=== PATIENT | male | born 1970 | race Caucasian/White ===

== ENCOUNTER 2016-07-09 16:19 | Emergency (ER) | payer SELFPAY ==
[~2016-07-09] VITALS: Ht 182.9 cm; Wt 104.5 kg
[2016-07-09 16:22] VITALS: BP 171/102; PULSE 94; RESP 12; TEMP 98.3; O2SAT 98
--- NOTE | 2016-07-09 16:45 | PD ---
HPI Chief Complaint: Medication Refill Request Time Seen by Provider: 16:45 Travel History International Travel<30 days: No Contact w/Intl Traveler<30days: No Traveled to known affect area: No History of Present Illness HPI 46-year-old male with PMH of HTN, depression, alcohol abuse in remission presents to the ED for medication refills. The patient states that he has run out of lisinopril, trazodone Wellbutrin and hydroxyzine. States he's been out of these medications for approximately 3 days. He states that he attempted to have them refilled at [facility] this morning. However, there were no beds available. Patient states he's been sleepless and anxious since running out of his medications. He denies suicidal or homicidal ideation. Patient stated otherwise been feeling well. He denies headache, fever, chills, cold or flu symptoms, chest pain, abdominal pain, nausea, vomiting, weakness of the extremities. NKDA. PFSH Social History Alcohol Use: No Tobacco Use: No Substance Use: No Allergies-Medications (Allergen,Severity, Reaction): Coded Allergies: No Known Allergies (Unverified , 07/09/16) Reported Meds & Prescriptions Reported Meds & Active Scripts Active Wellbutrin Xl 24 HR (Bupropion HCl) 150 Mg Tab 150 Mg PO DAILY Vistaril (Hydroxyzine Pamoate) 25 Mg Cap 25 Mg PO TID PRN Lisinopril 20 Mg Tab 20 Mg PO BID PRN Trazodone (Trazodone HCl) 50 Mg Tab 50 Mg PO HS Reported Lisinopril 20 Mg Tab 20 Mg PO BID Vistaril (Hydroxyzine Pamoate) 25 Mg Cap 25 Mg PO TID PRN Wellbutrin Xl 24 HR (Bupropion HCl) 150 Mg Tab 150 Mg PO DAILY Trazodone (Trazodone HCl) 50 Mg Tab 50 Mg PO HS Review of Systems Except as stated in HPI: all other systems reviewed are Neg Physical Exam Narrative GENERAL: Well-nourished, well-developed white male in no acute distress. PSYCHIATRIC: Anxious. No delusional thought processes. No hallucinations. SKIN: Warm and dry. HEAD: Normocephalic. EYES: No scleral icterus. No injection or drainage. NECK: Supple, trachea midline. No JVD or lymphadenopathy. CARDIOVASCULAR: Regular rate and rhythm without murmurs, gallops, or rubs. 2+ DP and radial pulses bilaterally. RESPIRATORY: Breath sounds clear and equal bilaterally. No accessory muscle use. GASTROINTESTINAL: Abdomen soft, non-tender, nondistended. Active bowel sounds. MUSCULOSKELETAL: No cyanosis, or edema. The patient is a mandatory moves extremities spontaneously. NEUROLOGICAL: Awake and alert. Cranial nerves II through XII intact. Motor and sensory grossly within normal limits. Five out of 5 muscle strength in all muscle groups. Normal speech. BACK: Nontender without obvious deformity. No CVA tenderness. Data Data Last Documented VS Vital Signs Date Time Temp Pulse Resp B/P Pulse Ox O2 Delivery O2 Flow Rate FiO2 07/09/16 16:22 98.3 94 12 171/102 98 Room Air MDM Medical Decision Making Medical Screen Exam Complete: Yes Emergency Medical Condition: Yes Differential Diagnosis Anxiety versus depression versus hypertension versus medication refill versus insomnia versus other Narrative Course 46-year-old male with PMH of HTN, depression, alcohol abuse in remission presents to the ED for medication refills. The patient states that he has run out of lisinopril, trazodone Wellbutrin and hydroxyzine. States he's been out of these medications for approximately 3 days. He states that he attempted to have them refilled at [facility] this morning. Patient states he's been sleepless and anxious since running out of his medications. He denies suicidal or homicidal ideation. He denies headache, fever, chills, cold or flu symptoms , chest pain, abdominal pain, nausea, vomiting, weakness of the extremities. Vitals reviewed. Patient is hypertensive on presentation. Physical exam is reassuring. The patient presents his empty medication bottles today. I discussed the importance of establishing primary care. He was provided information packet for the patient assistance program. I informed the patient that the providers discretion to refill medications, and that he may not be able to have his medications refilled here in the future. Instructed to take the medication as per prescribed, follow up as discussed. He indicated understanding of the instructions and is amenable to the plan of care. He is stable and discharged home. Diagnosis Primary Impression: Medication refill Referrals: Primary Care Physician Patient Instructions: Chronic Hypertension (ED), Depression (ED), General Instructions Additional Instructions: Rest, hydrate. Avoid known stressors. Take all medication as prescribed. Follow-up with the patient assistance program as discussed. Follow-up with primary care as discussed. Return to the ED for any urgent or emergent medical condition. Med/Other Pt SpecificInfo: Prescription(s) given Scripts Bupropion HCl ER 24 HR (Wellbutrin Xl 24 HR)150 Mg [id number] Mg PO DAILY #30 TAB Ref 0 Prov:Mary Rosenbaum DO 07/09/16 Hydroxyzine Pamoate (Vistaril)25 Mg Cap25 Mg PO TID PRN (ANXIETY) #30 CAP Ref 0 Prov:Mary Rosenbaum DO 07/09/16 Lisinopril 20 Mg Tab20 Mg PO BID PRN #60 TAB Ref 0 Prov:Mary Rosenbaum DO 07/09/16 Trazodone 50 Mg Tab50 Mg PO HS #30 TAB Ref 0 Prov:Mary Rosenbaum DO 07/09/16 Disposition: 01 DISCHARGE HOME Condition: Stable Kellie Cortés Jul 09, 2016 16:45
[2016-07-09] MEDS ORDERED: LISI-515 PO ×2 (16:58→17:36)
[2016-07-09] MEDS ORDERED: VIST25CA PO ×2 (16:58→17:36)
[2016-07-09] MEDS ORDERED: BUPR150XL PO ×2 (16:58→17:36)
[2016-07-09] MEDS ORDERED: TRAZ50TA12 PO ×2 (16:58→17:36)
== END 2016-07-09 17:58 | disposition home or self-care (01) ==
LOC: NEPB 16:19
DX: I10 Essential (primary) hypertension (principal); Z79.899 Other long term (current) drug therapy
CPT/HCPCS: 99281

== ENCOUNTER 2016-08-08 08:42 | Emergency (ER) | payer SELFPAY ==
[~2016-08-08] VITALS: Ht 185.4 cm; Wt 100.0 kg
[~2016-08-08 08:42] MED LIST: BUPR150XL PO; LISI-515 PO; TRAZ50TA12 PO; VIST25CA PO
[2016-08-08 08:44] VITALS: BP 185/114; PULSE 84; RESP 17; TEMP 97.9; O2SAT 99
[2016-08-08] MEDS ORDERED: LISI-515 PO (09:10)
[2016-08-08] MEDS ORDERED: BUPR150XL PO (09:10)
[2016-08-08] MEDS ORDERED: TRAZ50TA12 PO (09:10)
[2016-08-08] MEDS ORDERED: VIST25CA PO (09:10)
--- NOTE | 2016-08-08 09:20 | PD ---
HPI Chief Complaint: Medication Refill Request Time Seen by Provider: 09:11 Travel History International Travel<30 days: No Contact w/Intl Traveler<30days: No Traveled to known affect area: No History of Present Illness HPI 46-year-old male presents the emergency Department with request for refills of his trazodone, lisinopril, ropinirole, and hydroxyzine. Patient is currently in the process of patient assistance and has an appointment with [facility] on 25 August. He is currently without insurance but requesting refills of these meds. Patient is a recovering alcoholic with history of depression, currently in ongoing rehabilitation. He is requesting refills so that he does not withdraw. He currently has no other medical complaints at this time. Patient denies suicidal or homicidal ideation at this time. He has no known drug allergies. [facility] Social History Alcohol Use: No Tobacco Use: No Substance Use: No Allergies-Medications (Allergen,Severity, Reaction): Coded Allergies: No Known Allergies (Unverified , 07/09/16) Reported Meds & Prescriptions Reported Meds & Active Scripts Active Wellbutrin Xl 24 HR (Bupropion HCl) 150 Mg Tab 150 Mg PO DAILY Vistaril (Hydroxyzine Pamoate) 25 Mg Cap 25 Mg PO TID PRN Lisinopril 20 Mg Tab 20 Mg PO BID Trazodone (Trazodone HCl) 50 Mg Tab 50 Mg PO HS Lisinopril 20 Mg Tab 20 Mg PO BID PRN Trazodone (Trazodone HCl) 50 Mg Tab 50 Mg PO HS Reported Vistaril (Hydroxyzine Pamoate) 25 Mg Cap 25 Mg PO TID PRN Wellbutrin Xl 24 HR (Bupropion HCl) 150 Mg Tab 150 Mg PO DAILY Review of Systems Except as stated in HPI: all other systems reviewed are Neg General / Constitutional: No: Fever Eyes: No: Visual changes HENT: No: Headaches Cardiovascular: No: Chest Pain or Discomfort Respiratory: No: Shortness of Breath Gastrointestinal: No: Abdominal Pain Genitourinary: No: Dysuria Musculoskeletal: No: Pain Skin: No Rash Neurologic: No: Weakness Psychiatric: No: Depression Endocrine: No: Polydipsia Hematologic/Lymphatic: No: Easy Bruising Physical Exam Narrative GENERAL: Patient appears in no acute distress. SKIN: Warm and dry. Normal color. Normal turgor. HEAD: Atraumatic. Normocephalic. EYES: Pupils equal and round. No scleral icterus. No injection or drainage. ENT: No nasal bleeding or discharge. Mucous membranes pink and moist. Pharynx is clear. NECK: Trachea midline. Supple and nontender. CARDIOVASCULAR: Regular rate and rhythm. RESPIRATORY: No accessory muscle use. Clear to auscultation. Breath sounds equal bilaterally. MUSCULOSKELETAL: Extremities without clubbing, cyanosis, or edema. No obvious deformities. NEUROLOGICAL: Awake and alert. No obvious cranial nerve deficits. Motor grossly within normal limits. Five out of 5 muscle strength in the arms and legs. Normal speech. PSYCHIATRIC: Appropriate mood and affect; insight and judgment normal. Data Data Last Documented VS Vital Signs Date Time Temp Pulse Resp B/P Pulse Ox O2 Delivery O2 Flow Rate FiO2 08/08/16 08:44 97.9 84 17 185/114 99 MDM Medical Decision Making Medical Screen Exam Complete: Yes Emergency Medical Condition: Yes Differential Diagnosis History of depression. Polysubstance abuse. Need for refills. Narrative Course Patient is medically stable at time of exam. Refills given of trazodone 50 mg once evening #30. No refill Lisinopril 20 mg daily #30. No refill Wellbutrin 150 mg #30 no refill. Hydroxyzine 25 mg #30 no refill. Patient follow with [facility] clinic as scheduled. Patient may return the emergency Department with any worsening symptoms as needed. Diagnosis Primary Impression: Medication refill Patient Instructions: General Instructions Med/Other Pt SpecificInfo: Prescription(s) given Scripts Bupropion HCl ER 24 HR (Wellbutrin Xl 24 HR)150 Mg [id number] Mg PO DAILY #30 TAB Ref 0 Prov:Mary Rosenbaum DO 08/08/16 Hydroxyzine Pamoate (Vistaril)25 Mg Cap25 Mg PO TID PRN (ANXIETY) #30 CAP Ref 0 Prov:Mary Rosenbaum DO 08/08/16 Lisinopril 20 Mg Tab20 Mg PO BID #30 TAB Ref 0 Prov:Mary Rosenbaum DO 08/08/16 Trazodone 50 Mg Tab50 Mg PO HS #30 TAB Ref 0 Prov:Mary Rosenbaum DO 08/08/16 Disposition: 01 DISCHARGE HOME Condition: Stable Reji Harris Aug 08, 2016 09:20
== END 2016-08-08 09:29 | disposition home or self-care (01) ==
LOC: NEPB 08:42
DX: F10.20 Alcohol dependence, uncomplicated (principal); Z76.0 Encounter for issue of repeat prescription
CPT/HCPCS: 99281

== ENCOUNTER 2016-10-28 15:30 | Emergency (ER) | payer OTHER ==
[~2016-10-28] VITALS: Ht 185.4 cm; Wt 103.0 kg
[2016-10-28 15:34] VITALS: BP 179/96; PULSE 93; RESP 18; TEMP 98.3; O2SAT 97
--- NOTE | 2016-10-28 15:37 | PD ---
Physical Exam Time Seen by Provider: 15:35 Narrative 46 y/o with fatigue, dizziness for one week. He feels like he is "melting." Vital signs reviewed. Seen at triage desk. awaiting bed placement. Data Data Last Documented VS Vital Signs Date Time Temp Pulse Resp B/P Pulse Ox O2 Delivery O2 Flow Rate FiO2 10/28/16 15:34 98.3 93 18 179/96 97 MDM Medical Record Reviewed: Yes Supervised Visit with BUSHRA: Aaron Foreman October 28, 2016 15:37
[2016-10-28] MEDS ORDERED: SODIUM CHLORIDE 0.9% FLUSH 10 ML FLUSH IVF PRN (16:00)
--- NOTE | 2016-10-28 16:01 | PD ---
HPI Chief Complaint: Dizziness Time Seen by Provider: 15:45 Travel History International Travel<30 days: No Contact w/Intl Traveler<30days: No Traveled to known affect area: No History of Present Illness HPI Patient is a 46-year-old male who presents emergency department with complaint of dizziness. Patient states that he has had years of tinnitus that this has never given him any troubles. Over the course of the last week he has been having severe episodes of dizziness. Describes this as vertigo as though the world is spinning around him. He gets nauseous, but has not had any episodes of vomiting. He denies any other neurologic symptoms, word finding difficulty , speech slurring, etc. When he is having episodes of vertigo he does have some difficulty with gait. He has not noticed any change with head movement. His tinnitus has not been any worse than it is chronically, and he denies any ear pressure, drainage, etc. Patient feels generally weak, and fatigued in addition to the above symptoms. No chest pain, shortness of breath, palpitations. Patient is adopted, and does not know familial history. PFSH Past Medical History Depression: Yes Medical other: Yes (hx of mental disorder:depression) Tetanus Vaccination: > 5 Years Influenza Vaccination: No Past Surgical History Other Surgery: Yes (sinus sx) Social History Alcohol Use: Yes (hx of alcoholism quit 1 yr ago, pt in [facility]) Tobacco Use: Yes (ppd) Substance Use: No Allergies-Medications (Allergen,Severity, Reaction): Coded Allergies: No Known Allergies (Unverified , 10/28/16) Reported Meds & Prescriptions Reported Meds & Active Scripts Active Wellbutrin Xl 24 HR (Bupropion HCl) 150 Mg Tab 150 Mg PO DAILY Vistaril (Hydroxyzine Pamoate) 25 Mg Cap 25 Mg PO TID PRN Lisinopril 20 Mg Tab 20 Mg PO BID Trazodone (Trazodone HCl) 50 Mg Tab 50 Mg PO HS Lisinopril 20 Mg Tab 20 Mg PO BID PRN Trazodone (Trazodone HCl) 50 Mg Tab 50 Mg PO HS Reported Vistaril (Hydroxyzine Pamoate) 25 Mg Cap 25 Mg PO TID PRN Wellbutrin Xl 24 HR (Bupropion HCl) 150 Mg Tab 150 Mg PO DAILY Review of Systems Except as stated in HPI: all other systems reviewed are Neg Physical Exam Narrative GENERAL: Well-appearing middle-aged male in no acute distress SKIN: Focused skin assessment warm/dry. HEAD: Normocephalic. EYES: Pupils equal and round, minimal end gaze nystagmus horizontally. No scleral icterus. No injection or drainage. ENT: No nasal bleeding or discharge. Mucous membranes pink and moist. TMs clear bilaterally. NECK: Supple CARDIOVASCULAR: Regular rate and rhythm. No murmur appreciated. RESPIRATORY: No accessory muscle use. Clear to auscultation. Breath sounds equal bilaterally. GASTROINTESTINAL: Abdomen soft, non-tender, nondistended. Obese MUSCULOSKELETAL: No obvious deformities. No clubbing. No cyanosis. No edema. NEUROLOGICAL: Awake and alert. No obvious cranial nerve deficits other than minimal end gaze nystagmus horizontally. Motor grossly within normal limits. Normal speech. Normal gait. PSYCHIATRIC: Appropriate mood and affect; insight and judgment normal. Data Data Last Documented VS Vital Signs Date Time Temp Pulse Resp B/P Pulse Ox O2 Delivery O2 Flow Rate FiO2 10/28/16 15:44 97 Room Air 10/28/16 15:34 98.3 93 18 179/96 Orders Complete Blood Count With Diff (10/28/16 15:55) Basic Metabolic Panel (Bmp) (10/28/16 15:55) Iv Access Insert/Monitor (10/28/16 15:55) Oximetry (10/28/16 15:55) Sodium Chloride 0.9% Flush (Ns Flush) (10/28/16 16:00) Mri Brain W/O Contrast (10/28/16 ) Mra Brain W/O Contrast (Cow) (10/28/16 ) [facility] Medical Decision Making Medical Screen Exam Complete: Yes Emergency Medical Condition: Yes Medical Record Reviewed: Yes Differential Diagnosis 46-year-old male with history of chronic tinnitus here with episodic vertigo 1 week. Differential includes BPPV, Mnire's, labyrinthitis, posterior circulation CVA/TIA, mass lesion. Narrative Course Patient placed on monitor, IV established and blood obtained. CBC, BMP, MRI/ MRI of the brain were ordered. Results remain pending at the time this dictation. Patient signed out to oncoming provider waiting results of same for hopeful disposition to home if negative. Diagnosis Primary Impression: Vicky Yanes MD October 28, 2016 16:01
[2016-10-28 16:44] VITALS: PULSE 70; RESP 18; O2SAT 97
[2016-10-28 17:07] LABS: AUTOMATED NEUTROPHIL # 3.7 TH/MM3 (1.8-7.7); BASOPHIL % 0.2 % (0.0-2.0); EOSINOPHIL # 0.3 TH/MM3 (0-0.4); EOSINOPHIL % 3.5 % (0.0-4.0); HEMATOCRIT 41.7 % (39.0-51.0); HEMO FLAGS DIFF FINAL; LYMPH % 21.8 % (9.0-44.0); LYMPHOCYTE # 1.7 TH/MM3 (1.0-4.8); MEAN CELL VOLUME 92.6 FL (80.0-100.0); MEAN CORPUSCULAR HEMOGLOBIN 31.3 PG (27.0-34.0); MEAN CORPUSCULAR HGB CONC 33.8 % (32.0-36.0); NEUT % 48.5 % (16.0-70.0); PLATELET COUNT 239 TH/MM3 (150-450); RED CELL DISTRIBUTION WIDTH 12.7 % (11.6-17.2); WHITE BLOOD COUNT 7.7 TH/MM3 (4.0-11.0)
--- NOTE | 2016-10-28 17:17 | PD ---
Data Data Last Documented VS Vital Signs Date Time Temp Pulse Resp B/P Pulse Ox O2 Delivery O2 Flow Rate FiO2 10/28/16 19:40 54 16 133/86 97 10/28/16 16:44 Room Air 10/28/16 15:34 98.3 Orders Complete Blood Count With Diff (10/28/16 15:55) Basic Metabolic Panel (Bmp) (10/28/16 15:55) Iv Access Insert/Monitor (10/28/16 15:55) Oximetry (10/28/16 15:55) Sodium Chloride 0.9% Flush (Ns Flush) (10/28/16 16:00) Mri Brain W/O Contrast (10/28/16 ) Mra Brain W/O Contrast (Cow) (10/28/16 ) Cbc No Diff, Includes Plts (10/28/16 18:58) Basic Metabolic Panel (Bmp) (10/28/16 18:58) Labs Laboratory Tests Test 10/28/16 10/28/16 16:30 18:39 White Blood Count 7.7 TH/MM3 8.5 TH/MM3 Red Blood Count 4.50 MIL/MM3 4.68 MIL/MM3 Hemoglobin 14.1 GM/DL 14.3 GM/DL Hematocrit 41.7 % 40.5 % Mean Corpuscular Volume 92.6 FL 86.4 FL Mean Corpuscular Hemoglobin 31.3 PG 30.5 PG Mean Corpuscular Hemoglobin 33.8 % 35.3 % Concent Red Cell Distribution Width 12.7 % 13.3 % Platelet Count 239 TH/MM3 280 TH/MM3 Mean Platelet Volume 9.7 FL 7.2 FL Neutrophils (%) (Auto) 48.5 % Lymphocytes (%) (Auto) 21.8 % Monocytes (%) (Auto) 26.0 % Eosinophils (%) (Auto) 3.5 % Basophils (%) (Auto) 0.2 % Neutrophils # (Auto) 3.7 TH/MM3 Lymphocytes # (Auto) 1.7 TH/MM3 Monocytes # (Auto) 2.0 TH/MM3 Eosinophils # (Auto) 0.3 TH/MM3 Basophils # (Auto) 0.0 TH/MM3 CBC Comment DIFF FINAL Differential Comment Hematology Comments Sodium Level 136 MEQ/L 140 MEQ/L Potassium Level 4.0 MEQ/L 3.9 MEQ/L Chloride Level 101 MEQ/L 105 MEQ/L Carbon Dioxide Level 26.3 MEQ/L 26.3 MEQ/L Anion Gap 9 MEQ/L 9 MEQ/L Blood Urea Nitrogen 19 MG/DL 12 MG/DL Creatinine 1.01 MG/DL 0.90 MG/DL Estimat Glomerular Filtration 80 ML/MIN 91 ML/MIN Rate Random Glucose 101 MG/DL 94 MG/DL Calcium Level 9.1 MG/DL 8.4 MG/DL [facility] Supervised Visit with BUSHRA: No Narrative Course Patient care assumed from Dr. Amber Redd at 1700. This is a 46-year-old male who does not know his family history as she was adopted presents with vague dizziness symptoms. He is asymptomatic currently but has been having some vertigo on and off for the past few days. MRI has been ordered and disposition is pending the MRI. Last 24 hours Impressions Head Magnetic Resonance Angiography 10/28/16 0000 Signed Impressions: Service Date/Time: Friday, October 28, 2016 17:45 - CONCLUSION: Normal examination. Wild Cortez MD Brain MRI 10/28/16 0000 Signed Impressions: Service Date/Time: Friday, October 28, 2016 17:45 - CONCLUSION: No acute intracranial disease. There is sinus disease. Wild Cortez MD Patient on my examination is asymptomatic. His neurological exam shows cranial nerve II-12 are grossly intact and nonfocal, 5 out of 5 strength in all 4 extremities, sensation is normal, TMs are clear bilaterally. Cerebellar testing negative, he is able to an delay with even narrow based gait. My impression is probable BPPV. Discussed with him symptomatic management he was given discharge instructions for Mark maneuvers and meclizine. Discussed need for follow-up the primary care physician and return to ED criteria. Diagnosis Primary Impression: Vertigo Referrals: Indio Troy MD [facility] Med/Other Pt SpecificInfo: Prescription(s) given Scripts Lisinopril 20 Mg Tab20 Mg PO BID PRN #60 TAB Ref 0 Prov:Duane Olson MD 10/28/16 Meclizine 25 Mg Chew25 Mg CHEW DIRECTED PRN (VERTIGO) #30 TAB Ref 0 Prov:Duane Olson MD 10/28/16 Disposition: 01 DISCHARGE HOME Condition: Stable Duane Olson MD October 28, 2016 17:17
--- NOTE | 2016-10-28 18:15 | RADRPT ---
EXAM DATE/TIME: 10/28/2016 17:45 [facility] COMPARISON: MRI BRAIN W/O CONTRAST, October 28, 2016, 17:45. INDICATIONS : TIA. MEDICAL HISTORY : Hypertension. SURGICAL HISTORY : Sinus. Dental. ENCOUNTER: Subsequent ACUITY: 1 week PAIN SCORE: 3/10 LOCATION: cranial Please note a normal MRA of the brain does not entirely exclude the possibility of a small aneurysm, nor the possibility of distal intracranial vessel disease. TECHNIQUE: 3D time of flight MRA was performed. Source images, multiplanar STS MIP, and 3D volume MIP reconstru ctions were reviewed. FINDINGS: There is excellent visualization of the major intracranial arteries out to the second-order branch ve ssels. There is no evidence for aneurysm, vessel truncation or stenosis, and no evidence for vascula r malformation. CONCLUSION: Normal examination. Wild Cortez MD on October 28, 2016 at 18:11 Board Certified Radiologist. This report was verified electronically.
--- NOTE | 2016-10-28 18:16 | RADRPT ---
EXAM DATE/TIME: 10/28/2016 17:45 [facility] COMPARISON: No previous studies available for comparison. INDICATIONS : TIA. MEDICAL HISTORY : Hypertension. SURGICAL HISTORY : Sinus. Dental. ENCOUNTER: Subsequent ACUITY: 1 week PAIN SCORE: 3/10 LOCATION: cranial TECHNIQUE: Multiplanar, multisequence MRI of the brain was performed without contrast. FINDINGS: CEREBRUM: The ventricles are normal for age. No evidence of midline shift, mass lesion, hemorrhage or acute in farction. No extraaxial fluid collections are seen. The pituitary gland and suprasellar cistern are normal in configuration. WHITE MATTER: No significant signal abnormalities are seen in the white matter. POSTERIOR FOSSA: The cerebellum and brainstem are intact. The 4th ventricle is midline. The cerebellopontine angle is unremarkable. The cerebellar tonsils are normal in position. DIFFUSION IMAGING: No focal areas of restricted diffusion are seen. No evidence of acute infarction. EXTRACRANIAL: The visualized portions of the orbits are unremarkable. There is bilateral ethmoid and maxillary sinu s disease. CONCLUSION: No acute intracranial disease. There is sinus disease. Wild Cortez MD on October 28, 2016 at 18:13 Board Certified Radiologist. This report was verified electronically.
[2016-10-28] MEDS ORDERED: MECL25CH CHEW (18:19)
[2016-10-28 18:46] LABS: BICARBONATE 26.3 MEQ/L (21.0-32.0)
[2016-10-28 19:19] LABS: HEMATOCRIT 40.5 % (39.0-51.0); MEAN CELL VOLUME 86.4 FL (80.0-100.0); MEAN CORPUSCULAR HEMOGLOBIN 30.5 PG (27.0-34.0); MEAN CORPUSCULAR HGB CONC 35.3 % (32.0-36.0); PLATELET COUNT 280 TH/MM3 (150-450); RED BLOOD COUNT 4.68 MIL/MM3 (4.50-5.90); RED CELL DISTRIBUTION WIDTH 13.3 % (11.6-17.2); REVIEW FLAG FINAL; WHITE BLOOD COUNT 8.5 TH/MM3 (4.0-11.0)
[2016-10-28] MEDS ORDERED: LISI-515 PO (19:20)
[2016-10-28 19:37] LABS: BICARBONATE 26.3 MEQ/L (21.0-32.0); POTASSIUM 3.9 MEQ/L (3.5-5.1)
[2016-10-28 19:40] VITALS: BP 133/86
== END 2016-10-28 19:44 | disposition home or self-care (01) ==
LOC: NEPD 15:30
DX: R42 Dizziness and giddiness (principal); R53.83 Other fatigue; H93.19 Tinnitus, unspecified ear; F17.210 Nicotine dependence, cigarettes, uncomplicated
CPT/HCPCS: 70544; 70551; 80048; 85025; 85027

== ENCOUNTER 2017-11-09 10:37 | Emergency (ER) | payer SELFPAY ==
[~2017-11-09] VITALS: Ht 182.9 cm; Wt 111.0 kg
[~2017-11-09 10:37] MED LIST changes: +MECL25CH CHEW; -VIST25CA PO
[2017-11-09 10:42] VITALS: BP 167/114; PULSE 89; RESP 16; TEMP 98; O2SAT 97
--- NOTE | 2017-11-09 11:24 | PD ---
HPI Chief Complaint: Fall Time Seen by Provider: 11:01 Travel History International Travel<30 days: No Contact w/Intl Traveler<30days: No Traveled to known affect area: No History of Present Illness HPI 47-year-old male presents for evaluation after a fall. He reports that 2 days ago he was walking home from a bar. He had been drinking. He believes that he tripped on the curb and fell. He believes that there was loss of consciousness after the fall. He was able to ambulate home after the fall. He is complaining of left ankle/lower leg pain as well as right-sided jaw pain. Pain is throbbing and worse with movement or ambulation. He reports that yesterday he rested for most of the day, symptoms persisted today which prompted evaluation. He denies any numbness or tingling or weakness in the arms or legs. He denies any global headache, blurred vision, nausea or vomiting, neck or back pain, chest pain, abdomen pain. He is not on any blood thinning medications. He has no other complaints at this time. [facility] Past Medical History Depression: Yes Past Surgical History Other Surgery: Yes (sinus sx) Social History Alcohol Use: Yes (hx of alcoholism quit 1 yr ago, pt in [place]) Tobacco Use: Yes (ppd) Substance Use: No Allergies-Medications (Allergen,Severity, Reaction): Coded Allergies: No Known Allergies (Unverified Adverse Reaction, Unknown, 11/09/17) Reported Meds & Prescriptions Reported Meds & Active Scripts Active Hydrocodone-Acetaminophen 5-325 mg Tab 1 Tab PO Q6H PRN Lisinopril 20 Mg Tab 20 Mg PO BID PRN Meclizine (Meclizine HCl) 25 Mg Chew 25 Mg CHEW DIRECTED PRN Wellbutrin Xl 24 HR (Bupropion HCl) 150 Mg Tab 150 Mg PO DAILY Trazodone (Trazodone HCl) 50 Mg Tab 50 Mg PO HS Review of Systems Except as stated in HPI: all other systems reviewed are Neg Physical Exam Narrative GENERAL: Well-developed well-nourished male in no acute distress SKIN: Warm and dry. There is ecchymosis noted to the right mandible. There is ecchymosis noted to the medial left ankle. HEAD: Atraumatic. Normocephalic. EYES: Pupils equal and round. No scleral icterus. No injection or drainage. ENT: No nasal bleeding or discharge. Mucous membranes pink and moist. There is some tenderness to palpation of the right mandible. There is no trismus. Normal dentition. NECK: Trachea midline. No JVD. CARDIOVASCULAR: Regular rate and rhythm. No murmur appreciated. RESPIRATORY: No accessory muscle use. Clear to auscultation. Breath sounds equal bilaterally. GASTROINTESTINAL: Abdomen soft, non-tender, nondistended. Hepatic and splenic margins not palpable. MUSCULOSKELETAL: Skin as noted above. There is tenderness to palpation to the medial left ankle with associated edema and ecchymosis. There is tenderness to palpation to the lateral proximal left fibula and knee. There is limited dorsi and plantar flexion of the left ankle secondary to pain and swelling. The patient maintains full flexion and extension of the left knee. The Achilles tendon is intact and nontender. 2+ dorsalis pedis pulses. There is no tenderness to palpation along the cervical thoracic or lumbar midline spine. NEUROLOGICAL: Awake and alert. No obvious cranial nerve deficits. Motor grossly within normal limits. Normal speech. Data Data Last Documented VS Vital Signs Date Time Temp Pulse Resp B/P (MAP) Pulse Ox O2 Delivery O2 Flow Rate FiO2 11/09/17 12:11 89 18 97 Room Air 11/09/17 10:42 98.0 167/114 (131) Orders Orders Ankle, Complete ([id number]) (11/09/17 ) Ct Brain W/O Iv Contrast(Rout) (11/09/17 ) Ct Facial Bones W/O Iv Cont (11/09/17 ) Knee, Complete (4vws) (11/09/17 ) Ice/Cold Pack (11/09/17 11:08) Tibia/Fibula (Ap/Lat) (11/09/17 ) Complete Blood Count With Diff (11/09/17 11:08) Basic Metabolic Panel (Bmp) (11/09/17 11:08) Act Partial Throm Time (Ptt) (11/09/17 11:08) Prothrombin Time / Inr (Pt) (11/09/17 11:08) Magnesium (Mg) (11/09/17 11:08) Splint Or Brace Apply/Monitor (11/09/17 12:18) Fiberglass Short Leg Splint Ad (11/09/17 ) Fiberglass Sugartong Sp Ad Sl (11/09/17 ) Mandatory Outpatient Referral (11/09/17 13:15) Ed Discharge Order (11/09/17 13:19) Labs Laboratory Tests Test 11/09/17 12:01 White Blood Count 10.0 TH/MM3 Red Blood Count 5.09 MIL/MM3 Hemoglobin 16.2 GM/DL Hematocrit 45.9 % Mean Corpuscular Volume 90.1 FL Mean Corpuscular Hemoglobin 31.9 PG Mean Corpuscular Hemoglobin Concent 35.4 % Red Cell Distribution Width 13.9 % Platelet Count 284 TH/MM3 Mean Platelet Volume 7.2 FL Neutrophils (%) (Auto) 79.5 % Lymphocytes (%) (Auto) 10.0 % Monocytes (%) (Auto) 9.3 % Eosinophils (%) (Auto) 0.5 % Basophils (%) (Auto) 0.7 % Neutrophils # (Auto) 8.0 TH/MM3 Lymphocytes # (Auto) 1.0 TH/MM3 Monocytes # (Auto) 0.9 TH/MM3 Eosinophils # (Auto) 0.1 TH/MM3 Basophils # (Auto) 0.1 TH/MM3 CBC Comment DIFF FINAL Differential Comment Prothrombin Time 11.2 SEC Prothromb Time International Ratio 1.1 RATIO Activated Partial Thromboplast Time 26.9 SEC Blood Urea Nitrogen 16 MG/DL Creatinine 0.89 MG/DL Random Glucose 92 MG/DL Calcium Level 8.2 MG/DL Magnesium Level 2.5 MG/DL Sodium Level 140 MEQ/L Potassium Level 4.1 MEQ/L Chloride Level 106 MEQ/L Carbon Dioxide Level 23.2 MEQ/L Anion Gap 11 MEQ/L Estimat Glomerular Filtration Rate 92 ML/MIN [facility] Medical Decision Making Medical Screen Exam Complete: Yes Emergency Medical Condition: Yes Medical Record Reviewed: Yes Differential Diagnosis Maisonneuve fracture, medial ankle sprain, contusion, Lisfranc injury, ligamentous disruption, mandible fracture, contusion Narrative Course Plan is for CT imaging the brain and facial bones. Basic lab work, x-ray of the left knee, tibia fibula, ankle have been ordered. X-ray reveals CONCLUSION: Fracture proximal fibula. With the soft tissue swelling about the ankle ligamentous injury is suspected about the ankle Discussed the injury with orthopedist evaluation specialist Dr. Frank would like the patient placed in a posterior short leg splint/sugar tong splint, outpatient follow-up in her office in 1 week. The patient does not have insurance, a mandatory outpatient referral will be placed. CT facial bones reveals CONCLUSION: Air in the soft tissues about the right mandible. I cannot confirm of fracture. There is likely secondary to a laceration of the patient sustained when he bit his right inner cheek. Patient stable for discharge. Diagnosis Primary Impression: Maisonneuve fracture of left fibula Referrals: Louise Frank MD Additional Instructions: Do not remove the splint. Crutches. Pain medication as needed. Do not drive or drink alcohol and taking this pain medication. Follow-up with Dr. Frank next week in her office. Our senior case manager will call you at some point to help facilitate an appointment. Return for any emergent medical conditions. Med/Other Pt SpecificInfo: Prescription(s) given, Orthopedic Instructions Scripts Hydrocodone-Acetaminophen (Hydrocodone-Acetaminophen) 5-325 mg Tab 1 TAB PO Q6H Y for PAIN, #15 TAB 0 Refills Prov: Kailey Traore MD 11/09/17 Disposition: 01 DISCHARGE HOME Condition: Stable Aaron Long November 09, 2017 11:24
--- NOTE | 2017-11-09 11:37 | RADRPT ---
EXAM DATE/TIME: 11/09/2017 11:20 [facility] COMPARISON: No previous studies available for comparison. INDICATIONS : Left ankle pain after fall. MEDICAL HISTORY : Hypertension. SURGICAL HISTORY : Sinus. Dental. ENCOUNTER: Initial ACUITY: 3 days PAIN SCORE: 8/10 LOCATION: Left ankle. FINDINGS: Moderate soft tissue swelling worse on the medial. Most of the pain is on the lateral side by histor y. Anatomic alignment No fracture CONCLUSION: Negative for fracture or dislocation. Follow up in 7-10 days is suggested if symptoms persist. Migue Guzman MD FACR on November 09, 2017 at 11:33 Board Certified Radiologist. This report was verified electronically.
--- NOTE | 2017-11-09 11:40 | RADRPT ---
EXAM DATE/TIME: 11/09/2017 11:19 [facility] COMPARISON: No previous studies available for comparison. INDICATIONS : Left lower leg pain after fall. MEDICAL HISTORY : Hypertension. SURGICAL HISTORY : Sinus. Dental. ENCOUNTER: Initial ACUITY: 3 days PAIN SCORE: 5/10 LOCATION: Left tib/fib. FINDINGS: Generalized soft tissue swelling. Fracture proximal fibula. Soft tissue and about the ankle. CONCLUSION: Fracture proximal fibula. With the soft tissue swelling about the ankle ligamentous injury is suspec joe about the ankle Migue Guzman MD FACR on November 09, 2017 at 11:36 Board Certified Radiologist. This report was verified electronically.
--- NOTE | 2017-11-09 11:41 | RADRPT ---
EXAM DATE/TIME: 11/09/2017 11:24 [facility] COMPARISON: ANKLE LEFT COMPLETE ([id number]), November 09, 2017, 11:20. TIBIA/FIBULA LEFT (AP/LAT), November 09, 2017, 11:19. INDICATIONS : Left knee pain after fall. MEDICAL HISTORY : Hypertension. SURGICAL HISTORY : Sinus. Dental. ENCOUNTER: Initial ACUITY: 3 days PAIN SCORE: 5/10 LOCATION: Left knee. FINDINGS: Comminuted fracture of the proximal fibula. Remaining osseous structures appear intact. Joint spaces are maintained. Patella is intact. No significant suprapatellar fusion. CONCLUSION: 1. Comminuted proximal fibular fracture. Mohit Puente MD on November 09, 2017 at 11:35 Board Certified Radiologist. This report was verified electronically.
--- NOTE | 2017-11-09 12:03 | RADRPT ---
EXAM DATE/TIME: 11/09/2017 11:48 [facility] COMPARISON: No previous studies available for comparison. INDICATIONS : Trauma, fall. Cephalgia. RADIATION DOSE: 49.40 CTDIvol (mGy) MEDICAL HISTORY : None SURGICAL HISTORY : None. ENCOUNTER: Initial ACUITY: 2 days PAIN SCALE: 4/10 LOCATION: cranial TECHNIQUE: Multiple contiguous axial images were obtained of the head. Using automated exposure control and adj ustment of the mA and/or kV according to patient size, radiation dose was kept as low as reasonably a chievable to obtain optimal diagnostic quality images. DICOM format image data is available electro nically for review and comparison. FINDINGS: CEREBRUM: The ventricles are normal for age. No evidence of midline shift, mass lesion, hemorrhage or acute in farction. No extra-axial fluid collections are seen. POSTERIOR FOSSA: The cerebellum and brainstem are intact. The 4th ventricle is midline. The cerebellopontine angle i s unremarkable. EXTRACRANIAL: The visualized portion of the orbits is intact. SKULL: The calvaria is intact. No evidence of skull fracture. CONCLUSION: No acute intracranial disease. Abhi Bryant MD on November 09, 2017 at 12:00 Board Certified Radiologist. This report was verified electronically.
[2017-11-09 12:17] LABS: BASOPHIL # 0.1 TH/MM3 (0-0.2); BASOPHIL % 0.7 % (0.0-2.0); EOSINOPHIL # 0.1 TH/MM3 (0-0.4); EOSINOPHIL % 0.5 % (0.0-4.0); HEMATOCRIT 45.9 % (39.0-51.0); HEMOGLOBIN 16.2 GM/DL (13.0-17.0); MEAN CELL VOLUME 90.1 FL (80.0-100.0); MEAN CORPUSCULAR HEMOGLOBIN 31.9 PG (27.0-34.0); MEAN CORPUSCULAR HGB CONC 35.4 % (32.0-36.0); MEAN PLATELET VOLUME 7.2 FL (7.0-11.0); MONO % 9.3 % (0.0-8.0); MONOCYTE # 0.9 TH/MM3 (0-0.9); NEUT % 79.5 % (16.0-70.0); PLATELET COUNT 284 TH/MM3 (150-450); RED BLOOD COUNT 5.09 MIL/MM3 (4.50-5.90); RED CELL DISTRIBUTION WIDTH 13.9 % (11.6-17.2)
[2017-11-09 12:25] LABS: INTERNATIONAL NORMALIZED RATIO 1.1 RATIO; PROTHROMBIN TIME - PATIENT 11.2 SEC (9.8-11.6)
[2017-11-09 12:38] LABS: BICARBONATE 23.2 MEQ/L (21.0-32.0); CALCIUM 8.2 MG/DL (8.5-10.1); CREATININE 0.89 MG/DL (0.60-1.30); MAGNESIUM 2.5 MG/DL (1.5-2.5)
--- NOTE | 2017-11-09 12:48 | RADRPT ---
EXAM DATE/TIME: 11/09/2017 11:48 [place] Corrected on: November 09, 2017; [facility] COMPARISON: No previous studies available for comparison. INDICATIONS : Trauma, fall. Right jaw pain. RADIATION DOSE: 64.01 CTDIvol (mGy) MEDICAL HISTORY : None SURGICAL HISTORY : None. ENCOUNTER: Initial ACUITY: 2 days PAIN SCORE: 5/10 LOCATION: Right distal TECHNIQUE: Volumetric scanning of the facial bones was performed. Using automated exposure contr ol and adjustment of the mA and/or kV according to patient size, radiation dose was kept as low as re asonably achievable to obtain optimal diagnostic quality images. DICOM format image data is availabl e electronically for review and comparison. FINDINGS: Air is seen the soft tissues of the right mandible. In spite of this I cannot confirm mandibular fra cture. Alignment anatomic at the TMJ joints. Minimal mucoperiosteal thickening both maxillary sinuses worse on the left sinus disease left local s inus Orbits, zygomatic arches are intact. Minimal nasal septal deviation to the right. CONCLUSION: Air in the soft tissues about the right mandible. I cannot confirm of fracture. Sinus disease including left frontal sinus Migue Guzman MD FACR on November 09, 2017 at 12:05 Board Certified Radiologist. This report was verified electronically. Migue Guzman MD FACR on November 09, 2017 at 13:22 Board Certified Radiologist. This report was verified electronically.
[2017-11-09] MEDS ORDERED: HYDR-3516 PO (13:17)
--- NOTE | 2017-11-09 14:49 | PD ---
Physical Exam Narrative Please see mid-level provider note for full history and physical and disposition. Patient presents emergency department after a fall complaining of left lower extremity pain and right jaw pain. He is afebrile slightly hypertensive on exam. Workup was positive for a proximal fibula fracture. Patient was splinted and given follow-up instructions. Data Data Last Documented VS Vital Signs Date Time Temp Pulse Resp B/P (MAP) Pulse Ox O2 Delivery O2 Flow Rate FiO2 11/09/17 12:11 89 18 97 Room Air 11/09/17 10:42 98.0 167/114 (131) Orders Orders Ankle, Complete ([id number]) (11/09/17 ) Ct Brain W/O Iv Contrast(Rout) (11/09/17 ) Ct Facial Bones W/O Iv Cont (11/09/17 ) Knee, Complete (4vws) (11/09/17 ) Ice/Cold Pack (11/09/17 11:08) Tibia/Fibula (Ap/Lat) (11/09/17 ) Complete Blood Count With Diff (11/09/17 11:08) Basic Metabolic Panel (Bmp) (11/09/17 11:08) Act Partial Throm Time (Ptt) (11/09/17 11:08) Prothrombin Time / Inr (Pt) (11/09/17 11:08) Magnesium (Mg) (11/09/17 11:08) Splint Or Brace Apply/Monitor (11/09/17 12:18) Fiberglass Short Leg Splint Ad (11/09/17 ) Fiberglass Sugartong Sp Ad Sl (11/09/17 ) Mandatory Outpatient Referral (11/09/17 13:15) Ed Discharge Order (11/09/17 13:19) Crutches (11/09/17 13:24) Labs Laboratory Tests Test 11/09/17 12:01 White Blood Count 10.0 TH/MM3 Red Blood Count 5.09 MIL/MM3 Hemoglobin 16.2 GM/DL Hematocrit 45.9 % Mean Corpuscular Volume 90.1 FL Mean Corpuscular Hemoglobin 31.9 PG Mean Corpuscular Hemoglobin Concent 35.4 % Red Cell Distribution Width 13.9 % Platelet Count 284 TH/MM3 Mean Platelet Volume 7.2 FL Neutrophils (%) (Auto) 79.5 % Lymphocytes (%) (Auto) 10.0 % Monocytes (%) (Auto) 9.3 % Eosinophils (%) (Auto) 0.5 % Basophils (%) (Auto) 0.7 % Neutrophils # (Auto) 8.0 TH/MM3 Lymphocytes # (Auto) 1.0 TH/MM3 Monocytes # (Auto) 0.9 TH/MM3 Eosinophils # (Auto) 0.1 TH/MM3 Basophils # (Auto) 0.1 TH/MM3 CBC Comment DIFF FINAL Differential Comment Prothrombin Time 11.2 SEC Prothromb Time International Ratio 1.1 RATIO Activated Partial Thromboplast Time 26.9 SEC Blood Urea Nitrogen 16 MG/DL Creatinine 0.89 MG/DL Random Glucose 92 MG/DL Calcium Level 8.2 MG/DL Magnesium Level 2.5 MG/DL Sodium Level 140 MEQ/L Potassium Level 4.1 MEQ/L Chloride Level 106 MEQ/L Carbon Dioxide Level 23.2 MEQ/L Anion Gap 11 MEQ/L Estimat Glomerular Filtration Rate 92 ML/MIN MDM Supervised Visit with [facility]: Yes Diagnosis Primary Impression: Maisonneuve fracture of left fibula Qualified Codes: S82.865A - Nondisplaced Maisonneuve's fracture of left leg, initial encounter for closed fracture Referrals: Louise Frank MD Patient Instructions: General Instructions, Hydrocodone/Acetaminophen (By mouth ), Crutch Instructions (ED) Departure Forms: Work Release, Enter return to work date: November 16, 2017 Special Instructions: rest, elevate left leg Tests/Procedures Additional Instruction: Do not remove the splint. Crutches. Pain medication as needed. Do not drive or drink alcohol and taking this pain medication. Follow-up with Dr. Frank next week in her office. Our mattress spring encaser will call you at some point to help facilitate an appointment. Return for any emergent medical conditions. Scripts Hydrocodone-Acetaminophen (Hydrocodone-Acetaminophen) 5-325 mg Tab 1 TAB PO Q6H Y for PAIN, #15 TAB 0 Refills Prov: Kailey Traore MD 11/09/17 Disposition: 01 DISCHARGE HOME Condition: Stable Kailey Traore MD November 09, 2017 14:49
== END 2017-11-09 13:49 | disposition home or self-care (01) ==
LOC: NEPE 10:37
DX: S82.865A Nondisplaced Maisonneuve's fracture of left leg, initial encounter for closed fracture (principal); W18.09XA Striking against other object with subsequent fall, initial encounter; Y93.01 Activity, walking, marching and hiking; Z79.899 Other long term (current) drug therapy
CPT/HCPCS: 29515; 70450; 70486; 73564; 73590; 73610; 80048; 83735; 85025; 85610; 85730; 99285; E0113